=== PATIENT | male | born 1950 | race Caucasian/White ===

== ENCOUNTER 2017-09-11 07:49 | Day surgery (SDC) | payer MEDICARE, OTHER ==
[2017-09-11] MEDS ORDERED: PROPOFOL 0 ML (10:04)
== END 2017-09-11 12:17 | disposition home or self-care (01) ==
LOC: GIL 07:49
DX: K29.50 Unspecified chronic gastritis without bleeding (principal); K21.0 Gastro-esophageal reflux disease with esophagitis; K29.80 Duodenitis without bleeding
CPT/HCPCS: 43239; 88305; 88312; 88313